=== PATIENT | male | born 1990 | race Caucasian/White ===

== ENCOUNTER 2020-11-23 17:03 | Emergency (ER) | payer OTHER ==
--- NOTE | 2020-11-23 17:10 | ED General ---
General Chief Complaint: Head/Cervical Problems Stated Complaint: MEDICAL CLEARENCE Source of Information: Patient, Police Exam Limitations: Intoxication History of Present Illness Date Seen by Provider: Nov 23, 2020 Time Seen by Provider: 17:08 Initial Comments 30 yo male brought in to ED in police custody for evaluation of cut to left forehead/eyebrow and clearance to go to correction. Patient is belligerent, combative and verbally and physically abusive with staff and law enforcement. He has abrasions and laceration to left eyebrow/forehead. He is not cooperative with exam or history. He repeatedly screams that he is fine and to get away from him and not to touch him. He did yell that he had been to a bar for a few drinks and to have a good time. Allergies and Home Medications Allergies Coded Allergies: No Known Drug Allergies (Unverified , 11/23/20) Patient Home Medication List Home Medication List Reviewed: Yes Review of Systems Review of Systems Constitutional: no symptoms reported EENTM: see HPI Respiratory: no symptoms reported Cardiovascular: no symptoms reported Gastrointestinal: no symptoms reported Skin: see HPI Psychiatric/Neurological: Anxiety, Other (intoxicated) Past Hqvmbsa-Bbjrkd-Bteeqo Hx Past Medical History Surgery/Hospitalization HX: Unable to obtain as pt is uncooperative Physical Exam Vital Signs Capillary Refill : Height, Weight, BMI Height: '" Weight: lbs. oz. kg; BMI Method: General Appearance: Other (pt belligerent, uncooperative and abusive both physically and verbally to staff and police. ) Eyes: Bilateral Eye PERRL, Bilateral Eye EOMI HEENT: Other (abrasion and laceration with contusion and swelling to left lateral eyebrow/forehead. Negative alvarez sign/raccoon sign. No CSF otorrhea/rhinorrhea) Neck: Full Range of Motion, Normal Inspection, Non Tender, Supple Respiratory: Lungs Clear Cardiovascular: Normal Peripheral Pulses Extremity: Normal Capillary Refill Neurologic/Psychiatric: Alert Skin: Warm/Dry Procedures/Interventions Wound Location: Face (left eyebrow/forehead) Wound Length (cm): 1.2 Wound's Depth, Shape: sub Q Wound Explored: clean Other Closure Supply: Steri Strip /", Wound Adhesive Progress Wound cleaned with chlorhexidine soap and sterile water. Then tissue adhesive applied to help approximate wound edges and steri strips over the adhesive to try and give additional support. Progress/Results/Core Measures Suspected Sepsis SIRS Temperature: Pulse: Respiratory Rate: Blood Pressure / Mean: Results/Orders Vital Signs/I&O Capillary Refill : Progress Note : Progress Note Patient repeatedly yelling that he is ok and to stay away from him and to get off of him and let him go. Tissue adhesive and steristrips applied to wound to help approximate edges. He appears clear for incarceration otherwise. Departure Impression Primary Impression: Laceration of eyebrow, left Qualified Codes: S01.112A - Laceration without foreign body of left eyelid and periocular area, initial encounter Additional Impressions: Abrasion, multiple sites Facial contusion Qualified Codes: S00.83XA - Contusion of other part of head, initial encounter Medical clearance for incarceration Disposition: HOME, SELF-CARE Condition: Stable Departure-Patient Inst. Decision time for Depature: 17:26 Referrals: [facility] [place]ructions: Laceration Repair With Glue ED, Minor Head Injury, Adult ED, Black Eye ED, Abrasions ED Add. Discharge Instructions: Keep abrasions and cut clean and dry Do not use drugs or alcohol Medically stable for incarceration and to go with police to correction. All discharge instructions reviewed with patient and/or family. Voiced understanding. Images Head/Face 1 - Abrasion, Contusion, Laceration (1.2 cm laceration to lateral eyebrow/forehead area) 2 - Abrasion, Contusion, Ecchymosis, Swelling CHRISTY NIXON MD Nov 23, 2020 17:10
== END 2020-11-23 17:28 | disposition home or self-care (01) ==
LOC: ER FS 17:06
DX: S01.112A Laceration without foreign body of left eyelid and periocular area, initial encounter (principal); X58.XXXA Exposure to other specified factors, initial encounter
CPT/HCPCS: 99283